=== PATIENT | male | born 1975 ===

== ENCOUNTER 2016-10-15 10:21 | Emergency (ER) | payer OTHER ==
[2016-10-15 10:31] VITALS: TEMP 98.9
[2016-10-15] MEDS ORDERED: Amoxicillin-Clav 875-125 mg Tab PO STA (10:51)
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
[2016-10-15] MEDS ORDERED: Amoxicillin-Clav 875-125 mg Tab PO ONE (11:01)
[2016-10-15 11:26] VITALS: BP 139/85; PULSE 88; RESP 18; O2SAT 98
== END 2016-10-15 11:26 | disposition home or self-care (01) ==
LOC: C.ER 10:21
DX: S40.871A Other superficial bite of right upper arm, initial encounter (principal); W54.0XXA Bitten by dog, initial encounter; Y93.55 Activity, bike riding; Y92.410 Unspecified street and highway as the place of occurrence of the external cause